=== PATIENT | male | born 1990 | race Two or more races ===

== ENCOUNTER 2017-11-27 09:37 | Emergency (ER) | payer MEDICAID ==
[~2017-11-27] VITALS: Ht 149.9 cm; Wt 52.3 kg
[~2017-11-27 09:37] MED LIST: ALPR-475
[2017-11-27 09:42] VITALS: BP 113/68
[2017-11-27] MEDS ORDERED: TRAZ50TA18 PO (10:04)
== END 2017-11-27 10:47 | disposition home or self-care (01) ==
LOC: ED 10:35
DX: S63.636A Sprain of interphalangeal joint of right little finger, initial encounter (principal); X58.XXXA Exposure to other specified factors, initial encounter; Y93.89 Activity, other specified; Y92.009 Unspecified place in unspecified non-institutional (private) residence as the place of occurrence of the external cause; Y99.8 Other external cause status
CPT/HCPCS: 29130; 99284